=== PATIENT | female | born 1960 | race Caucasian/White ===

== ENCOUNTER 2016-09-30 12:56 | Emergency (ER) | payer OTHER | END 2016-09-30 13:56 | disposition home or self-care (01) | LOC: CED 12:56 → CFTX 12:56 | DX: K02.9 Dental caries, unspecified (principal); R03.0 Elevated blood-pressure reading, without diagnosis of hypertension; R59.0 Localized enlarged lymph nodes; J44.9 Chronic obstructive pulmonary disease, unspecified; E07.9 Disorder of thyroid, unspecified | CPT/HCPCS: 99282 ==